=== PATIENT | male | born 1955 | race Caucasian/White ===

== ENCOUNTER 2018-11-09 11:53 | Inpatient (IN) | payer OTHER ==
[~2018-11-09] VITALS: Ht 190.5 cm; Wt 95.5 kg
[2018-11-09] MEDS ORDERED: fentaNYL PF VIAL 100 MCG/2 ML VIAL ONE (12:09)
[2018-11-09] MEDS ORDERED: MIDAZOLAM HCL/PF 2 MG/2 ML VIAL. ONE (12:09)
[2018-11-09] MEDS ORDERED: IODIXANOL 320 MG/ML 100 ML VIAL. IART ONE (12:30)
[2018-11-09] MEDS ORDERED: MIDAZOLAM HCL/PF 2 MG/2 ML VIAL. IV ONE (12:30)
[2018-11-09] MEDS ORDERED: fentaNYL PF VIAL 100 MCG/2 ML VIAL IV ONE (12:30)
[2018-11-09] MEDS ORDERED: LIDOCAINE 2% 20 ML VIAL. IJ ONE (12:30)
[2018-11-09 12:39] VITALS: BP 145/70
[2018-11-09] MEDS ORDERED: CONTRAST GIVEN. MC PRN (12:45)
[2018-11-09] MEDS: IV 1/2 NORMAL SALINE 1,000 ML IV SCH (14:10)
--- NOTE | 2018-11-09 14:10 | PDOC2 ---
CONSULT Date of Consult Date of Consult DATE: 11/09/18 TIME: 14:10 Reason for Consult Reason for Consult: Chest pain Identification/Chief Complaint Chief Complaint Chest pain Source Source: Chart review, Patient History of Present Illness Reason for Visit: 63-year-old male initially presented to [facility] with crushing re trosternal chest pain associated with diaphoresis and mild shortness of breath. Initial EKG showed sinus rhythm with PVCs. Subsequent EKG obtained secondary to worsening chest pain showed junctional rhythm with bundle branch block very concerning for acute coronary syndrome. He was transferred to [facility] for emergent cardiac catheterization. By the time he arrived in the cardiac Critical Care Technician he stated that the chest pain completely resolved. He denied any orthopnea/PND, palpitations or syncope. He denied any previous cardiac history. Past Medical History Cardiovascular: No pertinent hx Past Surgical History Past Surgical History: No pertinent history Family History Family History Negative for premature coronary artery disease Social History Social History Patient denied any smoking or drug abuse Current Medications Current Medications Current Medications Fentanyl Citrate (Fentanyl 2ml Vial) 100 mcg STK-MED ONCE .ROUTE ; Start 11/09/18 at 12:09; Stop 11/09/18 at 12:10; Status DC Midazolam HCl (Versed) 2 mg STK-MED ONCE .ROUTE ; Start 11/09/18 at 12:09; Stop 11/09/18 at 12:10; Status DC Heparin Sodium/ Sodium Chloride (HEPARIN for ARTERIAL LINE FLUSH) 1,000 unit 1X ONCE IART Last administered on 11/09/18at 12:30; Start 11/09/18 at 12:30; Stop 11/09/18 at 12:31; Status DC Midazolam HCl (Versed) 2 mg 1X ONCE IV Last administered on 11/09/18at 12:30; Start 11/09/18 at 12:30; Stop 11/09/18 at 12:31; Status DC Fentanyl Citrate (Fentanyl 2ml Vial) 50 mcg 1X ONCE IV Last administered on 11/09/18at 12:30; Start 11/09/18 at 12:30; Stop 11/09/18 at 12:31; Status DC Iodixanol (Visipaque 320) 121 ml 1X ONCE IART Last administered on 11/09/18at 12:30; Start 11/09/18 at 12:30; Stop 11/09/18 at 12:31; Status DC Lidocaine HCl 20 ml 1X ONCE IJ Last administered on 11/09/18at 12:30; Start 11/09/18 at 12:30; Stop 11/09/18 at 12:31; Status DC Info (CONTRAST GIVEN -- Rx MONITORING) 1 each PRN DAILY PRN MC SEE COMMENTS; Start 11/09/18 at 12:45; Stop 11/11/18 at 12:44 Active Scripts Active Reported No Known Medications Prior To Admisstion (Info) Each 1 Each MC DAILY Allergies Allergies: Coded Allergies: No Known Drug Allergies (Unverified , 11/09/18) ROS PSYCHOLOGICAL ROS: No: Hallucinations Eyes: No Loss of vision HEENT: No: Epistaxis Respiratory: No: Hemoptysis Cardiovascular: yes Chest Pain Gastrointestinal: No Vomiting, No Diarrhea Genitourinary: No Hematuria Neurological: No Seizures Skin: No Rash Physical Exam General: Alert, Oriented X3 HEENT: Atraumatic, PERRLA Lungs: Clear to auscultation Heart: Regular rate Abdomen: Soft, No tenderness Extremities: No edema Psych/Mental Status: Mood NL Vitals VITALS Vital Signs Date Time Temp Pulse Resp B/P (MAP) Pulse Ox O2 Delivery O2 Flow Rate FiO2 11/09/18 13:04 Room Air 11/09/18 12:39 59 15 Assessment/Plan Assessment/Plan Chest pain with typical features and EKG with dynamic changes concerning for unstable angina. No significant ST elevations that could indicate STEMI were noted. His chest pain resolved at this time. We will proceed with cardiac catheterization for definitive evaluation. Risks and benefits were explained and he is agreeable. CHAD WEAVER MD Nov 09, 2018 14:10
--- NOTE | 2018-11-09 14:10 | PDOC ---
MODERATE SEDATION ASSESSMENT RISKS/ALTERNATIVES Risks/Alternatives Risks and alternatives of this type of sedation and procedure discussed with: RISK/ALTERNATIVES: Patient H & P ON CHART H & P H & P on chart and reviewed for co-morbid conditions and appropriate labs. H&P ON CHART: Yes STATUS PREG STATUS ASSESSED: N/A MEDS/ALLERGIES REVIEWED Meds/Allergies Reviewed Medications and Allergies including time and route of recently administered narcotics and sedatives. MEDS/ALLERGIES REVIEWED: Yes ASA RATING ASA RATING: II AIRWAY ASSESSMENT Airway Assessment Airway patency, oral function limitations, presence of caps, crowns, dentures, partials, and ability to extend neck assessed. AIRWAY ASSESSMENT: Yes MALLAMPATI SCORE MALLAMPATI SCORE: II PRE-SEDATION ASSESSMENT PRE-SEDATION ASSESSMENT: Yes CHAD WEAVER MD Nov 09, 2018 14:09
[2018-11-09] MEDS ORDERED: NITROGLYCERIN SUBLINGUAL 0.4 MG BOTTLE OF 25. SL PRN (14:15)
--- NOTE | 2018-11-09 14:17 | CARD ---
MR#: [id number] Date of Study: 11/09/2018 Ordering Physician: CHAD PIZANO, Referring Physician: CHAD PIZANO Tech: RT Brook (R) APPROVED REPORT Technologist: RT Brook (R) Nurse: Tatyana Hogan RN Procedure(s) performed: Left heart catheterization, selective coronary angiography and left ventricul ography Sedation Time: 31 minutes Dose: 48.65 Gycm2 Contrast: 128 mL Vill325 Fluoro Time: 1.7 Minutes INDICATION The indication(s) include : 63-year-old male initially presented to [facility] with chest pa in and had dynamic changes on EKG concerning for unstable angina. He was transferred emergently to [facility] for cardiac catheterization for definitive evaluation.. [facility] Clinical Frailty Scale [facility] Clinical Frailty Scale: Very Fit Heart Failure Heart Failure: No PROCEDURE NARRATIVE After explaining the risks, benefits and alternative options, informed consent was obtained from francisco ent. Patient was brought to the cardiac Litigation Associate and his right groin was prepped and draped in the us ual fashion. 20 mL of 2% lidocaine was infiltrated into the skin and subcutaneous tissues for local a nesthesia. Arterial access was obtained the right common femoral artery and a 6 Wallisian sheath was ins erted. 6 Wallisian JL4 and 6 Wallisian JR4 catheters were used to perform selective angiography of the left and right coronary arteries. 6 Wallisian pigtail catheter was used to perform left ventriculography. Sharath bustillo tolerated the procedure well. Hemostasis was achieved using Angio-Seal. There were no immediate complications. FINDINGS 1. Hemodynamics: Left ventricle end diastolic pressure 24 mmHg. No pullback gradient across the aor tic valve. 2. Left ventriculography: Normal left ventricle systolic function with ejection fraction estimated a t 50-55%. No symptomatic and mitral regurgitation seen. 3. Coronary angiography: a. The left main coronary artery arose from the left sinus of Valsalva, gave rise to the left anteri or descending and left circumflex arteries and did not show any significant stenosis. b. The left anterior descending artery did not show any significant stenosis. c. The left circumflex artery did not show any significant stenosis. d. The right coronary artery did not show any significant stenosis. Conclusion 1. No significant coronary artery disease 2. Normal left ventricle systolic function with ejection fraction estimated at 50-55%. Signed by : Chad Pizano, Electronically Approved : 11/09/2018 14:16:44
[2018-11-09 15:00] VITALS: BP 145/70
--- NOTE | 2018-11-09 17:09 | CARD ---
MR#: [id number] Date of Study: 11/09/2018 Ordering Physician: CHAD PIZANO, Referring Physician: CHAD PIZANO, Tech: Shahnaz Galvez APPROVED REPORT EXAM: Two-dimensional and M-mode echocardiogram with Doppler and color Doppler. Other Information Quality : AverageHR: 41bpm Rhythm : Bradycardia INDICATION Chest Pain 2D DIMENSIONS RVDd3.4 (2.9-3.5cm)Left Atrium(2D)3.9 (1.6-4.0cm) IVSd1.0 (0.7-1.1cm)Aortic Root(2D)3.4 (2.0-3.7cm) LVDd6.1 (3.9-5.9cm)LVOT Diameter2.1 (1.8-2.4cm) PWd0.9 (0.7-1.1cm)LVDs4.6 (2.5-4.0cm) FS (%) 25.1 %SV92.8 ml LVEF(%)48.7 (>50%) Aortic Valve AoV Peak Rafael.106.2cm/sAoV VTI28.7cm AO Peak GR.4.5mmHgLVOT VTI 19.36cm AO Mean GR.3mmHg Mitral Valve MV E Vtoevess81.4cm/sMV DECEL [id number] MV A Vpgwggxz16.0cm/sE/A Ratio2.0 TDI Lateral E' P. V8.69cm/sMedial E' P. V8.50cm/s E/Lateral E'9.3E/Medial E'9.5 Tricuspid Valve TR P. Jexvuypj269hm/sRAP HACSPUHW4jvVu TR Peak Gr.38toMeVRCP11piPn Pulmonary Vein S1 Rbhcdipy64.4cm/sS2 Yterxyps14.63cm/s D2 Lduesvvt11.6cm/sPVa [id number] LEFT VENTRICLE The left ventricle is normal size. There is normal left ventricular wall thickness. The left ventricu lar systolic function is low normal. The Ejection Fraction is 50%. The left ventricular diastolic fun ction and filling is normal for age. RIGHT VENTRICLE The right ventricle is mildly dilated. There is normal right ventricular wall thickness. The right ve ntricular systolic function is normal. ATRIA The left atrium size is normal. The right atrium is mildly dilated. The interatrial septum is intact with no evidence for an atrial septal defect or patent foramen ovale as noted on 2-D or Doppler imagi ng. AORTIC VALVE The aortic valve is normal in structure and function. Doppler and Color Flow revealed no significant aortic regurgitation. There is no significant aortic valvular stenosis. MITRAL VALVE The mitral valve is thickened but opens well. A borderline mitral valve prolapse is present. There is no mitral valve stenosis. Doppler and Color Flow revealed trace mitral valve regurgitation. TRICUSPID VALVE The tricuspid valve is normal in structure and function. Doppler and Color Flow revealed trace tricus pid valve regurgitation with an estimated PAP of 30 mmHg. There is no tricuspid valve prolapse or veg etation. There is no tricuspid valve stenosis. PULMONIC VALVE The pulmonic valve is not well visualized. Doppler and Color Flow revealed trace pulmonic valvular re gurgitation. GREAT VESSELS The aortic root is normal in size. The IVC is normal in size and collapses >50% with inspiration. PERICARDIAL EFFUSION There is no evidence of significant pericardial effusion. Critical Notification Critical Value: No <Conclusion> The left ventricular systolic function is low normal. The Ejection Fraction is 50%. Trace mitral valve regurgitation. Trace tricuspid valve regurgitation with an estimated PAP of 30 mmHg. There is no evidence of significant pericardial effusion. Signed by : Chad Pizano, Electronically Approved : 11/09/2018 17:09:17
[2018-11-09 17:15] VITALS: BP 172/89
[2018-11-09 19:00] VITALS: BP 152/74
[2018-11-09 23:00] VITALS: BP 131/67
[2018-11-10] MEDS: IV 1/2 NORMAL SALINE 1,000 ML IV SCH ×2 (00:10→10:10)
[2018-11-10 03:00] VITALS: BP 108/51
[2018-11-10 07:15] VITALS: BP 144/79
[2018-11-10 10:45] VITALS: BP 149/68
--- NOTE | 2018-11-10 11:46 | NUR ---
SS following for discharge planning. SS reviewed pt chart. Pt is from home and is currently on room air. No discharge needs noted at this time. SS will continue to follow for discharge planning.
--- NOTE | 2018-11-10 12:15 | PDOC3 ---
BUZZ DOWNS ELECTRONIC PREPRESS SYSTEM OPERATOR 11/10/18 1215: Discharge Summary Visit Information Date of Admission: Nov 09, 2018 Date of Discharge: Nov 10, 2018 Admitting Diagnosis: NSTEMI Final Diagnosis NSTEMI, arrhythmia/bradycardia, printzmetal Brief Hospital Course Allergies Allergies Coded Allergies Type Severity Reaction Last Updated Verified No Known Drug Allergies 11/09/18 No Vital Signs Vital Signs Date Time Temp Pulse Resp B/P (MAP) Pulse Ox O2 Delivery O2 Flow Rate FiO2 11/10/18 10:45 97.5 45 14 149/68 (95) 99 Room Air 97.5 Brief Hospital Course This is a pleasant 63 yo male initially admitted at [facility] for chest pain. Due to abnormal EKG with possible STEMI and elevated troponin at 0.1 he was then transferred to [facility] for LHC. This was performed without any complications and no significant coronary anomaly was noted and his EF was 50% and WM were low normal. He was initially noted with possible AIVR which has not recurred but since then he has been noted with bradycardia which junctional by morphology lowest at 38 without any symptoms. His symptoms before has not recurred. His right groin arteriotomy site is intact without any complications. Imdur would be ideal but given his bradycardia will call in 5mg norvasc and HBPM was encouraged. Event monitor is to be arranged as an outpt and to follow up with Dr. Weaver in 1 month. Stimulants were to be avoided and post cath protocol was discussed. Discharge Information Condition at Discharge: Stable Follow Up: Weeks (4) Disposition/Orders: D/C to Home Scheduled Info (No Known Medications Prior To Admisstion) Each, 1 EACH DAILY for none, (Reported) Entered as Reported by: SIMONE JAMES on 11/09/181335 Last Action: New Order on 11/09/181335 by SIMONE JAMES Patient Instructions Patient Instructions GENERAL INSTRUCTIONS: 1. Your dressing should be removed prior to leaving the hospital. 2. It is OK to shower the day after your procedure. 3. If you received stents, be sure to carry your stent information card with you in your wallet/purse at all times. 4. Call the office immediately at [phone] if you notice any fever or if there is redness, worsening tenderness/pain, increased bruising, or drainage from the puncture site. 5. Should you have bleeding from the site, lie down immediately & put pressure on the site. The pressure should be hard enough to stop the bleeding. Have the nearest person call 911. DO NOT try to drive to the ER with active bleeding. 6. If you notice a change in color, coolness to touch, or loss of feeling in the affected extremity, come to the emergency room. Please have someone drive you or call 911 if no one is available. DO NOT drive yourself. 7. If you normally take glucophage (metformin), please do not take this medicine for 48 hours following your procedure. 8. DO NOT STOP TAKING YOUR PLAVIX OR ASPIRIN UNLESS IT IS CLEARED BY A REELING AND TUBING MACHINE OPERATOR OF YOUR BROOMCORN THRESHER AT OUR OFFICE. 9. QUIT SMOKING: the [place] [employer], [place] [employer], & [place] [employer] have cessation resources available on their websites 10. Please have someone available to drive you home from the hospital as you may be limited by sedation medications given during the procedure. Femoral (Groin) access: 1. Do no lifting, pushing, pulling, bending, stooping, or recurrent stair climbing for 3 days following your procedure. 2. Once past the first 3 days, do not do any HEAVY exertion or lifting for one week following the procedure. No gym workouts, running, lifting greater than a gallon of milk, etc 3. Do not submerge in bath or pool for one week. OK to drive 3 days following your procedure, but if going long distance, do not go alone & take hourly breaks to get out of car and walk around. Call the office at [phone] for any questions or concerns. CHAD WEAVER MD 11/10/180: Discharge Summary Brief Hospital Course Brief Hospital Course Patient seen and examined. Agree with DRIER AND PULVERIZER TENDER's assessment and plan. Cardiac cath did not show any significant CAD LV function normal CP prob GI etiology Groin looks good OK for DC today BUZZ DOWNS APRN Nov 10, 2018 12:15 CHAD WEAVER MD Nov 10, 2018 21:40
--- NOTE | 2018-11-10 12:39 | EKG ---
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
[2018-11-10 13:00] LABS: POTASSIUM 3.7 mmol/L (3.5-5.1)
[2018-11-10 13:06] LABS: CALCIUM 8.9 mg/dL (8.5-10.1); GFR 75.2
--- NOTE | 2018-11-10 13:59 | NUR ---
Discharge Note: RICARDO ROMAN Discharge instructions and discharge home medications reviewed with Patient and a copy given. All questions have been answered and understanding verbalized.
== END 2018-11-10 14:02 | disposition home or self-care (01) | DRG 282 ==
LOC: 1 WEST ICU 11:57 → 2 SOUTH 17:27
PROVIDERS: ADMIT Internal Medicine Cardiovascular Disease; ATTEND Internal Medicine Cardiovascular Disease
PROC: 4A023N7 Measurement of Cardiac Sampling and Pressure, Left Heart, Percutaneous Approach (ICD-10-PCS; principal; 2018-11-09)
PROC: B2111ZZ Fluoroscopy of Multiple Coronary Arteries using Low Osmolar Contrast (ICD-10-PCS; 2018-11-09)
PROC: B2151ZZ Fluoroscopy of Left Heart using Low Osmolar Contrast (ICD-10-PCS; 2018-11-09)
DX: I21.4 Non-ST elevation (NSTEMI) myocardial infarction (principal); I20.1 Angina pectoris with documented spasm; R00.1 Bradycardia, unspecified
CPT/HCPCS: 93458; G0269; 36415; 80048; 83735; 93005; 93306; 99152; 99153; 99406; C1760; C1769; C1892; J1644; J2001; J2250; J3010; Q9967; C1771